=== PATIENT | male | born 1955 | race Caucasian/White ===

== ENCOUNTER 2024-01-21 21:11 | Inpatient (IN) | payer OTHER ==
[2024-01-21] MEDS ORDERED: POLYETHYLENE GLYCOL (HEALTHYLAX) 3350 17 GM PACKET ONE (21:42)
[2024-01-21] MEDS ORDERED: KETOROLAC TROMETHAMINE 30 MG/1 ML VIAL ONE (21:43)
[2024-01-21 22:07] LABS: BASO % 0.4 % (0-2.0); EOS % 0.7 % (0-4.5); HEMATOCRIT 45.1 % (35.4-49); HEMOGLOBIN 15.3 GM/dL (11.7-16.9); LYMPH % 9.3 % (8-40); MCH 30.1 pg (25.7-33.7); MCHC 33.9 g/dl (32.0-35.9); MEAN CELL VOLUME 88.8 fl (80-96); MEAN PLT VOLUME 7.7 fl (7.5-11.1); NEUT % 80.6 % (42.8-82.8); PLATELET COUNT 169 10^3/uL (134-434); RBC 5.08 M/mm3 (4.00-5.60); RDW 13.4 % (11.9-15.9); WHITE BLOOD COUNT 10.1 K/mm3 (4.0-10.0)
[2024-01-21] MEDS: KETOROLAC TROMETHAMINE 30 MG/1 ML VIAL IVPUSH ONE (22:07)
[2024-01-21] MEDS: POLYETHYLENE GLYCOL (HEALTHYLAX) 3350 17 GM PACKET PO SCH (22:07)
[2024-01-21 22:10] LABS: EPI CELLS 1 /uL (0-25.1); HYALINE CASTS 0 /uL (0-3.1); URINE APPEARANCE CLEAR; URINE BACTERIA 5 /uL (0-1359); URINE BILIRUBIN NEGATIVE (NEGATIVE); URINE COLOR YELLOW; URINE GLUCOSE (UA) 3+ (NEGATIVE); URINE KETONE 1+ (NEGATIVE); URINE LEUK ESTERASE NEGATIVE (NEGATIVE); URINE NITRITE NEGATIVE (NEGATIVE); URINE PROTEIN NEGATIVE (NEGATIVE); URINE RBC 18 /uL (0-23.9); URINE UROBILINOGEN 0.2 mg/dL (0.2-1.0); URINE WBC 13 /uL (0-25.8)
[2024-01-21 22:25] LABS: POTASSIUM 3.4 mmol/L (3.5-5.1)
[2024-01-21 22:27] LABS: BLOOD UREA NITROGEN 21.6 mg/dL (7-18)
[2024-01-21 22:30] LABS: CREATININE 0.9 mg/dL (0.55-1.3)
[2024-01-21] MEDS ORDERED: TAMSULOSIN HCL 0.4 MG CAP ONE (23:14)
[2024-01-21] MEDS: TAMSULOSIN HCL 0.4 MG CAP PO ONE (23:17)
[2024-01-22] MEDS ORDERED: LACTULOSE 20 GM/30 ML UDC (FOR ORAL USE ONLY) ONE (01:31)
[2024-01-22] MEDS ORDERED: SENNOSIDES 8.6MG TABLET (FP) PO PRN ×2 (01:33→17:06)
[2024-01-22] MEDS: LACTULOSE 20 GM/30 ML UDC (FOR ORAL USE ONLY) PO ONE (01:38)
[2024-01-22] MEDS: POTASSIUM CHLORIDE TABS 20 MEQ TABLET.ER (FP) PO ONE (03:21)
[2024-01-22 04:09] VITALS: RESP 18; BMI 27.9
[2024-01-22] MEDS: KETOROLAC TROMETHAMINE 15 MG/ML VIAL IVPUSH PRN (04:32)
[2024-01-22] MEDS: IBUPROFEN 600 MG TABLET (FP) PO PRN (05:28)
[2024-01-22] MEDS: INSULIN ASPART SLIDING SCALE (NOVOLOG) 1 VIAL SQ SCH (06:14)
[2024-01-22] MEDS: amLODIPine BESYLATE 5 MG TABLET (FP) PO SCH (09:04)
[2024-01-22] MEDS: POLYETHYLENE GLYCOL (HEALTHYLAX) 3350 17 GM PACKET PO SCH (09:04)
[2024-01-22] MEDS: DOCUSATE SODIUM 100 MG CAPSULE (FP) PO PRN (09:04)
[2024-01-22] MEDS: TAMSULOSIN HCL 0.4 MG CAP PO SCH (09:04)
[2024-01-22] MEDS: CEFTRIAXONE 1 GM in DEXTROSE 5%-WATER - 50 ML IVPB SCH (09:04)
[2024-01-22] MEDS ORDERED: LOSARTAN POTASSIUM 50 MG TABLET PO SCH (10:00)
[2024-01-22] MEDS ORDERED: amLODIPine BESYLATE 5 MG TABLET (FP) PO SCH (10:00)
[2024-01-22] MEDS ORDERED: ENOXAPARIN NA (PORCINE) 40 MG/0.4 ML DISP.SYRIN SQ SCH (10:00)
[2024-01-22] MEDS ORDERED: LACTATED RINGERS SOLUTION 1,000 ML/1,000 ML INFUS.BAG IV SCH (12:45)
[2024-01-22] MEDS ORDERED: PROPOFOL 20 ML ONE (15:38)
[2024-01-22] MEDS ORDERED: LIDOCAINE HCL/PF 2% SDV 5ML VIAL ONE (15:38)
[2024-01-22] MEDS ORDERED: ONDANSETRON 4 MG/2 ML VIAL ONE (15:38)
[2024-01-22] MEDS ORDERED: SUCCINYLCHOLINE CHLORIDE 200 MG/10 ML SYRINGE ONE (15:38)
[2024-01-22] MEDS ORDERED: DEXAMETHASONE SOD PHOSPHATE 4 MG/1 ML VIAL ONE (15:38)
[2024-01-22] MEDS ORDERED: ONDANSETRON 4 MG/2 ML VIAL IVPUSH PRN ×2 (16:00→17:06)
[2024-01-22] MEDS ORDERED: LACTATED RINGERS SOLUTION 1,000 ML IV SCH (16:00)
[2024-01-22] MEDS: IOHEXOL 300 MG/ML INFUS..BTL IV ONE (16:15)
[2024-01-22] MEDS ORDERED: DOCUSATE SODIUM 100 MG CAPSULE (FP) PO PRN (17:06)
[2024-01-22] MEDS ORDERED: KETOROLAC TROMETHAMINE 15 MG/ML VIAL IVPUSH PRN (17:06)
[2024-01-22] MEDS ORDERED: POLYETHYLENE GLYCOL (HEALTHYLAX) 3350 17 GM PACKET PO SCH ×2 (17:06→22:00)
[2024-01-22] MEDS ORDERED: IBUPROFEN 600 MG TABLET (FP) PO PRN (17:06)
[2024-01-22] MEDS: LACTATED RINGERS SOLUTION 1,000 ML/1,000 ML INFUS.BAG IV SCH (17:14)
[2024-01-22 18:27] VITALS: BP 132/92; PULSE 75; TEMP 98.4
[2024-01-22] MEDS ORDERED: INSULIN ASPART SLIDING SCALE (NOVOLOG) 1 VIAL SQ SCH (22:00)
[2024-01-22] MEDS ORDERED: ATORVASTATIN CA 10 MG TABLET (FP) PO SCH ×2 (22:00)
[2024-01-22] MEDS ORDERED: EZETIMIBE 10 MG TABLET (FP) PO SCH ×2 (22:00)
[2024-01-23] MEDS ORDERED: LOSARTAN POTASSIUM 50 MG TABLET PO SCH (10:00)
[2024-01-23] MEDS ORDERED: amLODIPine BESYLATE 5 MG TABLET (FP) PO SCH (10:00)
== END 2024-01-22 18:33 | disposition home or self-care (01) | DRG 661 ==
LOC: JER 21:11 → JERBED 23:15 → J5S 01-22 04:02 → OBSVTOIN 01-22 10:45
PROVIDERS: ADMIT Internal Medicine; ATTEND Internal Medicine
PROC: 0TC78ZZ Extirpation of Matter from Left Ureter, Via Natural or Artificial Opening Endoscopic (ICD-10-PCS; 2024-01-22)
PROC: 0T778DZ Dilation of Left Ureter with Intraluminal Device, Via Natural or Artificial Opening Endoscopic (ICD-10-PCS; principal; 2024-01-22 15:04)
DX: N13.2 Hydronephrosis with renal and ureteral calculous obstruction (principal); I10 Essential (primary) hypertension; E11.9 Type 2 diabetes mellitus without complications; E78.5 Hyperlipidemia, unspecified; K40.90 Unilateral inguinal hernia, without obstruction or gangrene, not specified as recurrent; E87.6 Hypokalemia
CPT/HCPCS: 36415; 74176-TC; 76000-TC-FY; 80048; 81003; 82962; 85025; 93005; 93010; 94760; 99285-25; C2617; G0378

== ENCOUNTER 2024-01-30 04:01 | Day surgery (SDC) | payer OTHER ==
[2024-01-26 09:57] VITALS: BMI 28.8
[2024-01-30 06:45] VITALS: RESP 20
[2024-01-30] MEDS ORDERED: PROPOFOL 20 ML ONE ×2 (07:44→08:34)
[2024-01-30] MEDS ORDERED: MIDAZOLAM HCL 2 MG/2 ML SINGLE DOSE VIAL ONE (08:05)
[2024-01-30 08:59] VITALS: PULSE 64
[2024-01-30 09:21] VITALS: BP 105/71; TEMP 97.3
== END 2024-01-30 09:50 | disposition home or self-care (01) ==
LOC: JASU-SURG 04:01
PROVIDERS: ATTEND Urology
PROC: 0TF4XZZ Fragmentation in Left Kidney Pelvis, External Approach (ICD-10-PCS; principal; 2024-01-30 08:16)
DX: N20.0 Calculus of kidney (principal)
CPT/HCPCS: 82962